=== PATIENT | female | born 1980 ===

== ENCOUNTER 2019-11-30 09:04 | Day surgery (SDC) | payer OTHER ==
[2019-11-29 15:30] VITALS: BMI 19.3
[2019-11-30 12:03] VITALS: TEMP 97
[2019-11-30 12:12] VITALS: BP 128/65; PULSE 64
--- NOTE | 2019-12-01 09:34 | PATH ---
Surgical Pathology Report Patient Name: LOLLY ZAMUDIO [facility]. Rec. #: [id number] /Age/Gender: 1980 (Age: 39) / F Account: [id number] Location: [facility]-ENDOSCOPY Taken: 11/30/2019 Received: 11/30/2019 Reported: 12/01/2019 Physicians: RASHAD ETIENNE Specimen(s) Received A: SIGMOID B: SIGMOID Clinical History Occult blood in stool Postoperative diagnosis: Colon polyps Final Diagnosis A. SIGMOID COLON, POLYP, POLYPECTOMY: HYPERPLASTIC POLYP. B. SIGMOID COLON, BIOPSY: POLYPOID COLONIC MUCOSA WITH PROMINENT LYMPHOID AGGREGATE. Electronically Signed Georgia Hagen M.D. Gross Description A. Received in formalin, labeled "polyp sigmoid" is a inchols, irregular portion of soft tissue measuring 0.6 cm. in greatest dimension. The specimen is submitted in toto in one cassette. B. Received in formalin, labeled "biopsy sigmoid polyp" are 2 nichols, irregular portions of soft tissue measuring 0.1 and 0.2 cm. in greatest dimension. The specimens are submitted in toto in one cassette. /11/30/2019 saudi/11/30/2019
== END 2019-11-30 11:19 | disposition home or self-care (01) ==
LOC: JASU-ENDO 09:04
PROVIDERS: ATTEND Internal Medicine Gastroenterology
PROC: 0DBN8ZX Excision of Sigmoid Colon, Via Natural or Artificial Opening Endoscopic, Diagnostic (ICD-10-PCS; principal; 2019-11-30 10:00)
DX: D12.5 Benign neoplasm of sigmoid colon (principal); R19.5 Other fecal abnormalities; K63.89 Other specified diseases of intestine
CPT/HCPCS: 81025